=== PATIENT | female | born 1975 | race Hispanic/Latino ===

== ENCOUNTER 2017-03-19 07:35 | Observation (INO) | payer MEDICAID ==
[~2017-03-19] VITALS: Ht 154.9 cm; Wt 67.1 kg
[2017-03-19 08:14] LABS: APPEARANCE,URINE Clear (CLEAR); BILIRUBIN,URINE Negative (NEGATIVE); COLOR,URINE Yellow (YELLOW); GLUCOSE, URINE (UA) Negative (NEGATIVE); KETONES,URINE Trace mg/dL (NEGATIVE); LEUKOCYTE ESTERASE ,URINE Trace (NEGATIVE); NITRATE,URINE Negative (NEGATIVE); OCCULT BLOOD,URINE Moderate (NEGATIVE); PROTEIN,URINE Negative (NEGATIVE)
[2017-03-19 08:18] LABS: BASOPHILS % (AUTO) 1.8 % (0.0-5.0); EOSINOPHILS % (AUTO) 8.3 % (0.0-8.0); HEMATOCRIT 32.7 % (36-48); LYMPHOCYTES % (AUTO) 15.1 % (21.0-51.0); MEAN CORPUSCULAR HEMOGLOBIN 31.1 pg (27.0-33.0); MEAN CORPUSCULAR HGB CONC 35.1 g/dL (32.0-36.0); MEAN CORPUSCULAR VOLUME 88.6 fL (79-99); MONOCYTES % (AUTO) 14.4 % (3.0-13.0); NEUTROPHILS % (AUTO) 60.4 % (40.0-77.0); NUCLEATED RED BLOOD CELLS 0.1 % (0.0-0.19); PLATELET COUNT (AUTO) 127 K/uL (130-400); RED BLOOD CELL COUNT(AUTO) 3.69 MIL/uL (4.00-5.50); RED CELL DISTRIBUTION WIDTH 14.5 % (11.0-15.5); WHITE BLOOD COUNT (AUTO) 3.9 K/uL (4.8-10.8)
[2017-03-19 08:26] LABS: POTASSIUM 3.5 mmol/L (3.5-5.1)
[2017-03-19 08:31] LABS: ALBUMIN 2.9 g/dL (3.5-5.0); BILIRUBIN,TOTAL 0.4 mg/dL (0.2-1.0); TOTAL PROTEIN, SERUM 7.3 g/dL (6.0-8.3)
[2017-03-19] MEDS ORDERED: ONDANSETRON HCL 4 MG/2 ML VIAL ONE (08:33)
[2017-03-19 08:58] LABS: BACTERIA,URINE Few /HPF (None Seen); CALCIUM OXALATE CRYSTALS,UR Moderate /LPF (None Seen); MUCUS,URINE Rare LPF (None Seen); RBC,URINE 26-50 /HPF (0-1); SQUAMOUS EPITHELIAL CELL,UR Few /LPF (0-2); WBC,URINE 0-1 /HPF (0-1)
[2017-03-19] MEDS ORDERED: CEFTRIAXONE SODIUM 1 GM ONE (09:15)
[2017-03-19] MEDS ORDERED: KETOROLAC TROMETHAMINE 15MG/ML ONE (09:15)
[2017-03-19] MEDS ORDERED: SODIUM CHLORIDE 0.9% 50 ML IV ONE (09:15)
[2017-03-19] MEDS ORDERED: GUAIFENESIN-DM 200/20 MG 10 ML PO PRN (11:00)
[2017-03-19] MEDS ORDERED: MORPHINE SULFATE 2 MG/ML 1ML SYG IV PRN (11:00)
[2017-03-19] MEDS ORDERED: NITROGLYCERIN 0.4 MG SL TAB SL PRN (11:00)
[2017-03-19] MEDS ORDERED: PROMETHAZINE HCL 25 MG/ML 1ML AMPULE IM PRN (11:00)
[2017-03-19] MEDS ORDERED: CEFTRIAXONE 1GM/D5W 50ML 50 ML IV SCH (11:00)
[2017-03-19] MEDS ORDERED: ACETAMINOPHEN 325 MG TAB PO PRN ×2 (11:00)
[2017-03-19] MEDS ORDERED: LACTULOSE 20 GM/30 ML UDCUP PO PRN (11:00)
[2017-03-19] MEDS ORDERED: MAG HYDROX/AL HYDROX/SIMETH ES 30 ML SUSP UDCUP PO PRN (11:00)
[2017-03-19] MEDS ORDERED: HYDRALAZINE HCL 20 MG/ML VIAL IV PRN (11:00)
[2017-03-19] MEDS ORDERED: MORPHINE SULFATE 4 MG/1ML SYG IV PRN (11:00)
[2017-03-19] MEDS ORDERED: ONDANSETRON HCL 4 MG/2 ML VIAL IV PRN (11:00)
[2017-03-19] MEDS ORDERED: SODIUM CHLORIDE 0.9% 1000ML 1,000 ML IV ONE (11:17)
[2017-03-19] MEDS ORDERED: MORPHINE SULFATE 2 MG/ML 1ML SYG ONE (11:18)
[2017-03-19] MEDS ORDERED: TAMSULOSIN HCL 0.4 MG CAP.ER.24H ONE (11:18)
[2017-03-19] MEDS ORDERED: FAMOTIDINE/PF 20 MG/2 ML VIAL IV ONE (11:19)
[2017-03-19 14:52] VITALS: BP 105/65
[2017-03-19] MEDS: SODIUM CHLORIDE 0.9% 1000ML 1,000 ML IV SCH (16:41)
[2017-03-19 19:00] VITALS: BP 93/61
[2017-03-19] MEDS: FAMOTIDINE/PF 20 MG/2 ML VIAL IV SCH (21:31)
[2017-03-19] MEDS ORDERED: TAMO10TA PO (21:39)
[2017-03-19 23:00] VITALS: BP 95/58
[2017-03-20] MEDS: SODIUM CHLORIDE 0.9% 1000ML 1,000 ML IV SCH ×3 (00:21→21:22)
[2017-03-20 03:00] VITALS: BP 97/52
[2017-03-20 05:40] LABS: HEMATOCRIT 27.1 % (36-48); MEAN CORPUSCULAR HEMOGLOBIN 30.1 pg (27.0-33.0); MEAN CORPUSCULAR HGB CONC 34.2 g/dL (32.0-36.0); NUCLEATED RED BLOOD CELLS 0.2 % (0.0-0.19); PLATELET COUNT (AUTO) 105 K/uL (130-400); RED BLOOD CELL COUNT(AUTO) 3.08 MIL/uL (4.00-5.50); RED CELL DISTRIBUTION WIDTH 14.5 % (11.0-15.5); WHITE BLOOD COUNT (AUTO) 3.6 K/uL (4.8-10.8)
[2017-03-20 05:47] LABS: CREATININE 0.7 mg/dL (0.5-1.5); INR 0.99 (0.85-1.15); POTASSIUM 3.9 mmol/L (3.5-5.1); PROTHROMBIN TIME 10.4 SEC (9.6-11.6)
[2017-03-20 07:58] VITALS: BP 96/60
[2017-03-20] MEDS: TAMSULOSIN HCL 0.4 MG CAP.ER.24H PO SCH ×2 (08:08→08:09)
[2017-03-20] MEDS: FAMOTIDINE/PF 20 MG/2 ML VIAL IV SCH ×2 (08:08→21:22)
[2017-03-20] MEDS: CEFTRIAXONE SODIUM 1 GM IVP SCH ×2 (11:00→12:26)
[2017-03-20] MEDS ORDERED: TAMOXIFEN CITRATE 10 MG TABLET PO SCH (11:30)
[2017-03-20 11:51] VITALS: BP 106/67
[2017-03-20] MEDS: KETOROLAC TROMETHAMINE 30MG/ML IV PRN (16:09)
[2017-03-20 16:26] VITALS: BP 116/76
[2017-03-20 19:00] VITALS: BP 97/67
[2017-03-20 23:00] VITALS: BP 105/63
[2017-03-21] MEDS: KETOROLAC TROMETHAMINE 30MG/ML IV PRN (00:27)
[2017-03-21 03:00] VITALS: BP 109/79
[2017-03-21 05:59] LABS: POTASSIUM 3.9 mmol/L (3.5-5.1)
[2017-03-21 08:00] VITALS: BP_SYST 107; BP_SYST 110; BP_DIAS 69; BP_DIAS 71
[2017-03-21] MEDS: TAMSULOSIN HCL 0.4 MG CAP.ER.24H PO SCH (09:32)
[2017-03-21] MEDS: FAMOTIDINE/PF 20 MG/2 ML VIAL IV SCH (09:33)
[2017-03-21 11:00] VITALS: BP 139/80
== END 2017-03-21 12:00 | disposition home or self-care (01) ==
LOC: EDH 07:35 → EDHIP 07:36 → 3BH 14:40
PROVIDERS: ADMIT Internal Medicine; ATTEND Internal Medicine
DX: N13.2 Hydronephrosis with renal and ureteral calculous obstruction (principal); C50.912 Malignant neoplasm of unspecified site of left female breast; N39.0 Urinary tract infection, site not specified; Z87.442 Personal history of urinary calculi
CPT/HCPCS: 36415 ×3; 74176; 80048 ×2; 80053; 81001; 81025; 82360; 85025; 85027; 85610; 87040 ×2; 87088; 88300; 96361 ×3; 96374; 96375 ×2; 96376 ×3; 99285; A4218; G0378 ×52; J0696 ×2; J1885 ×3; J2270; J2405; J3490 ×5; J7030 ×3

== ENCOUNTER 2017-03-24 18:23 | Emergency (ER) | payer MEDICAID ==
[~2017-03-24 18:23] MED LIST: TAMO10TA PO
[2017-03-24 19:51] LABS: BASOPHILS % (AUTO) 0.6 % (0.0-5.0); EOSINOPHILS % (AUTO) 1.3 % (0.0-8.0); LYMPHOCYTES % (AUTO) 33.5 % (21.0-51.0); MEAN CORPUSCULAR HGB CONC 34.2 g/dL (32.0-36.0); MEAN CORPUSCULAR VOLUME 87.6 fL (79-99); MONOCYTES % (AUTO) 20.8 % (3.0-13.0); NEUTROPHILS % (AUTO) 43.8 % (40.0-77.0); PLATELET COUNT (AUTO) 176 K/uL (130-400); RED BLOOD CELL COUNT(AUTO) 3.65 MIL/uL (4.00-5.50); RED CELL DISTRIBUTION WIDTH 13.8 % (11.0-15.5); WHITE BLOOD COUNT (AUTO) 3.4 K/uL (4.8-10.8)
[2017-03-24] MEDS ORDERED: ENOXAPARIN SODIUM 60 MG/0.6 ML SQ ONE (19:58)
[2017-03-24 20:00] LABS: CREATININE 0.7 mg/dL (0.5-1.5); POTASSIUM 3.8 mmol/L (3.5-5.1)
[2017-03-24 20:04] LABS: ALBUMIN 2.8 g/dL (3.5-5.0); BILIRUBIN,TOTAL 0.5 mg/dL (0.2-1.0); CRP QUANTITATIVE 17.4 mg/L (0.00-9.0); INR 0.96 (0.85-1.15); PARTIAL THROMBOPLASTIN TIME 24.8 SEC (26.3-35.5); PROTHROMBIN TIME 10.1 SEC (9.6-11.6); TOTAL PROTEIN, SERUM 7.8 g/dL (6.0-8.3)
[2017-03-24 21:08] LABS: ERYTHROCYTE SEDIMENTATION RATE 45 MM/HR (0-15)
== END 2017-03-24 21:53 | disposition home or self-care (01) ==
LOC: EDH 18:23
DX: I82.890 Acute embolism and thrombosis of other specified veins (principal); Z85.3 Personal history of malignant neoplasm of breast; Z79.899 Other long term (current) drug therapy
CPT/HCPCS: 36415; 80053; 85025; 85610; 85651; 85730; 86141; 93971; 96372; 99285; J1650

== ENCOUNTER 2017-03-25 06:43 | Emergency (ER) | payer MEDICAID ==
[2017-03-25 07:20] LABS: APPEARANCE,URINE Clear (CLEAR); BILIRUBIN,URINE Negative (NEGATIVE); COLOR,URINE Yellow (YELLOW); GLUCOSE, URINE (UA) Negative (NEGATIVE); KETONES,URINE Negative (NEGATIVE); LEUKOCYTE ESTERASE ,URINE Small (NEGATIVE); NITRATE,URINE Negative (NEGATIVE); OCCULT BLOOD,URINE Small (NEGATIVE); PH,URINE 5.5 (5.0-8.0); PROTEIN,URINE Negative (NEGATIVE)
[2017-03-25 07:24] LABS: HCG,QUAL RESULT NEGATIVE (NEGATIVE)
[2017-03-25 07:59] LABS: BACTERIA,URINE Few /HPF (None Seen); RBC,URINE 0-1 /HPF (0-1)
[2017-03-25 08:02] LABS: BASOPHILS % (AUTO) 0.4 % (0.0-5.0); EOSINOPHILS % (AUTO) 0.6 % (0.0-8.0); HEMATOCRIT 32.2 % (36-48); LYMPHOCYTES % (AUTO) 18.8 % (21.0-51.0); MEAN CORPUSCULAR HEMOGLOBIN 30.4 pg (27.0-33.0); MEAN CORPUSCULAR HGB CONC 34.5 g/dL (32.0-36.0); MEAN CORPUSCULAR VOLUME 88.2 fL (79-99); MONOCYTES % (AUTO) 12.9 % (3.0-13.0); NEUTROPHILS % (AUTO) 67.3 % (40.0-77.0); NUCLEATED RED BLOOD CELLS 0.1 % (0.0-0.19); PLATELET COUNT (AUTO) 181 K/uL (130-400); RED BLOOD CELL COUNT(AUTO) 3.65 MIL/uL (4.00-5.50); WHITE BLOOD COUNT (AUTO) 5.7 K/uL (4.8-10.8)
[2017-03-25 08:11] LABS: CREATININE 0.9 mg/dL (0.5-1.5); POTASSIUM 4.1 mmol/L (3.5-5.1)
== END 2017-03-25 09:05 | disposition home or self-care (01) ==
LOC: EDH 06:43
DX: N20.2 Calculus of kidney with calculus of ureter (principal); Z85.3 Personal history of malignant neoplasm of breast; Z90.49 Acquired absence of other specified parts of digestive tract; Z98.890 Other specified postprocedural states
CPT/HCPCS: 36415; 76770; 80048; 81001; 81025; 85025; 87088

== ENCOUNTER → 2017-03-29 | Outpatient (CLI) | payer MEDICAID | END | disposition home or self-care (01) | LOC: RAH 13:30 | PROVIDERS: ATTEND Urology | DX: N20.0 Calculus of kidney (principal) | CPT/HCPCS: 74018 ==

== ENCOUNTER → 2018-04-18 | Outpatient (CLI) | payer MEDICAID | END | disposition home or self-care (01) | LOC: RAH 14:51 | PROVIDERS: ATTEND Internal Medicine | DX: R92.8 Other abnormal and inconclusive findings on diagnostic imaging of breast (principal); Z85.3 Personal history of malignant neoplasm of breast | CPT/HCPCS: 77066 ==

== ENCOUNTER → 2020-05-30 | Outpatient (CLI) | payer MEDICAID | END | disposition home or self-care (01) | LOC: RAH 07:51 | PROVIDERS: ATTEND Internal Medicine | DX: C50.412 Malignant neoplasm of upper-outer quadrant of left female breast (principal); R92.8 Other abnormal and inconclusive findings on diagnostic imaging of breast; N63.0 Unspecified lump in unspecified breast; R92.2 Inconclusive mammogram | CPT/HCPCS: 77066 ==

== ENCOUNTER 2021-12-28 17:26 | Emergency (ER) | payer OTHER, MEDICAID ==
[~2021-12-28] VITALS: Ht 154.9 cm; Wt 66.7 kg
[2021-12-28] MEDS ORDERED: IBUPROFEN 600 MG TABLET PO ONE (19:30)
[2021-12-28] MEDS ORDERED: IBUPROFEN 200 MG TAB ONE (19:36)
[2021-12-28 20:58] VITALS: BP 122/65
== END 2021-12-28 20:59 | disposition home or self-care (01) ==
LOC: EDH 17:26
DX: M79.601 Pain in right arm (principal); M54.2 Cervicalgia; M25.511 Pain in right shoulder; Z90.49 Acquired absence of other specified parts of digestive tract
CPT/HCPCS: 73080; 93971

== ENCOUNTER → 2022-07-21 | Outpatient (CLI) | payer OTHER, MEDICAID | END | disposition home or self-care (01) | LOC: RAH 15:51 | PROVIDERS: ATTEND Internal Medicine | DX: Z12.31 Encounter for screening mammogram for malignant neoplasm of breast (principal) | CPT/HCPCS: 77067 ==

== ENCOUNTER → 2023-12-23 | Outpatient (CLI) | payer OTHER | END | disposition home or self-care (01) | LOC: RAH 08:54 | PROVIDERS: ATTEND Internal Medicine | DX: R92.323 Mammographic fibroglandular density, bilateral breasts (principal); R92.30 Dense breasts, unspecified; Z85.3 Personal history of malignant neoplasm of breast | CPT/HCPCS: 77066 ==